=== PATIENT | male | born 1955 | race American Indian/Alaskan Native ===

== ENCOUNTER 2018-01-08 08:55 | Day surgery (SDC) | payer BC ==
--- NOTE | 2018-01-08 09:10 | CP.SDSHP ---
Same Day Surgery H & P - History Proposed Procedure: colonoscopy - Previous Medical/Surgical History Comments: Ulcerative colitis - Allergies Allergies: Allergies No Known Allergies Allergy (Unverified 10/10/13 17:59) - Date & Time Date: 01/08/18 Time: 09:09 Short Stay Discharge - Short Stay Discharge Admitting Diagnosis/Reason for Visit: ULCERATIVE COLITIS Disposition: HOME/ ROUTINE
[2018-01-08] MEDS ORDERED: Propofol 10 mg/ml Inj (20 ML) ONE (09:18)
[2018-01-08 11:02] VITALS: BMI 33.0
[2018-01-08] MEDS ORDERED: Lactated Ringer's 500 ML IV SCH (11:15)
[2018-01-08 11:27] VITALS: O2SAT 99
[2018-01-08 13:50] VITALS: BP 131/91; PULSE 80; RESP 21; TEMP 97.7
== END 2018-01-08 12:30 | disposition home or self-care (01) ==
LOC: C.ENDO 08:55
PROVIDERS: ATTEND Colon & Rectal Surgery
DX: Z12.11 Encounter for screening for malignant neoplasm of colon (principal); K51.011 Ulcerative (chronic) pancolitis with rectal bleeding; D12.4 Benign neoplasm of descending colon; K52.9 Noninfective gastroenteritis and colitis, unspecified
CPT/HCPCS: 45380; 45385; 88305; J2001; J2704; J7120